=== PATIENT | female | born 1975 | race Caucasian/White ===

== ENCOUNTER → 2017-03-30 | Outpatient (CLI) | payer BC ==
--- NOTE | 2017-03-30 12:31 | REP ---
Clinical: Nephrolithiasis. History of medullary sponge kidney. Technique: Real time torres scale ultrasound examination using curved array transducer. Findings: The kidneys are normal in reniform shape and size diffusely increased medullary echo texture consistent with medullary sponge kidney. There is no evidence for hydronephrosis, cystic or mass lesion. Small nonobstructing intrarenal calculi cannot be excluded. Right kidney measures 10.9 x 5.5 x 4.9 cm. Left kidney measures 9.5 x 5.2 x 5.5 cm. The bladder is unremarkable. 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 Small intrarenal calculi cannot be excluded. Signed by Remberto Barbour MD 03/30/2017 12:22 P
== END ==
LOC: M RAD 11:53
PROVIDERS: ATTEND Internal Medicine Nephrology
DX: N20.0 Calculus of kidney (principal); Q61.5 Medullary cystic kidney; R10.9 Unspecified abdominal pain; N29 Other disorders of kidney and ureter in diseases classified elsewhere

== ENCOUNTER → 2018-11-30 | Outpatient (REF) | payer BC ==
[2018-12-01 11:04] LABS: AMORPHOUS SEDIMENT SMALL (NEGATIVE); BACTERIA, URINE AUTO NEGATIVE (NEGATIVE); RBC, URINE AUTO 1 /HPF (0-3); SQUAMOUS EPITHELIAL CELL UR AU 1 /HPF (0-6); WBC, URINE AUTO 6 /HPF (0-3)
== END ==
LOC: M LAB REF 10:34
PROVIDERS: ATTEND Internal Medicine Nephrology
DX: N20.0 Calculus of kidney (principal)

== ENCOUNTER → 2019-08-13 | Outpatient (CLI) | payer BC ==
--- NOTE | 2019-08-13 20:11 | REP ---
Renal ultrasound: Comparisons are 03/30/2017, at 09/01/2016 and 12/11/2014. The patient has a suspected diagnosis of medullary sponge kidney. The right kidney measures 11.1 x 501 x 5.7 cm. The left kidney measures 9.3 x 4.4 x 5.4 cm. The right kidney is normal size. Left kidney is in the low normal size range. The medullary pyramids of the kidneys are echogenic bilaterally. This is consistent with, but not diagnostic of, medullary sponge kidney. There are tiny echogenic foci at the cortical medullary junction compatible with tiny calculi. There is no hydronephrosis. There is a 1.1 a centimeter right renal cyst at the mid pole. No left renal cysts are identified. No solid masses are identified. Bladder: No bladder jets are identified with color Doppler assessment. However, there is no hydronephrosis. This may be from dehydration. Impression: The there are echogenic medullary renal pyramids bilaterally. There are tiny echogenic foci at the cortical medullary junction bilaterally. These findings are compatible with but not diagnostic of medullary sponge kidney. There is no hydronephrosis. No solid renal masses. There is a right renal simple cyst as discussed. Electronically Signed by Cristóbal Cuellar MD 08/13/2019 08:02 P
== END ==
LOC: M RAD 16:19
PROVIDERS: ATTEND Internal Medicine Nephrology
DX: Q61.5 Medullary cystic kidney (principal)

== ENCOUNTER → 2021-01-04 | Outpatient (CLI) | payer BC, OTHER ==
--- NOTE | 2021-01-04 17:55 | REP ---
INDICATION: CONTUSION OF RIGHT BACK WALL OF THORAX, INITIAL ENCOUNTER. COMPARISON: None. TECHNIQUE: PA chest with 4 dedicated rib views. FINDINGS: PA chest: Lungs are adequately inflated. There is no infiltrate, effusion, atelectasis or mass. CP angle sharply defined. No pneumothorax or pneumomediastinum. Heart, mediastinal and hilar contours are normal. The aorta and airway intact. Visualized clavicles, scapula and ribs on the PA chest intact. No free air under the diaphragm. Right ribs: Four view show posterior rib articulations intact and some marginal osteophytes in the thoracic spine. There is a gentle S shaped curvature of the thoracolumbar spine convex to the right in the midthoracic convex to the left lower thoracic and convex to the right mid lumbar region. Minimal rotatory component the lumbar spine. Posterior ribs are intact in particular the right chest shows no visible or displaced rib fracture or focal lesion the lateral and anterior ribs also intact those portions of left ribs seen were unremarkable. No pleural thickening effusion or pneumothorax. IMPRESSION: Negative PA chest and right rib series for any acute bony abnormality. There is some S-shaped curvature to the thoracolumbar spine with some rotatory component the lumbar spine but no compression fracture. No visible rib fractures. Lung guzman, heart, mediastinal contours, aorta and airway all intact. <Electronically signed by Mahesh Ayala > 01/04/21 [id number]
== END ==
LOC: M RAD 16:46
PROVIDERS: ATTEND Physician Assistant
DX: S20.221A Contusion of right back wall of thorax, initial encounter (principal); X58.XXXA Exposure to other specified factors, initial encounter; Y92.9 Unspecified place or not applicable; Y93.9 Activity, unspecified; Y99.9 Unspecified external cause status

== ENCOUNTER → 2021-05-27 | Outpatient (REF) | payer BC, OTHER | LOC: M LAB REF 17:09 | PROVIDERS: ATTEND Internal Medicine Nephrology | DX: Q61.5 Medullary cystic kidney (principal) ==

== ENCOUNTER → 2021-12-07 | Outpatient (REF) | payer OTHER ==
[2021-12-08 11:32] LABS: BASO # 0.1 10^3/uL (0.0-0.2); BASO % 0.8 % (0.0-1.0); EOS # 0.3 10^3/uL (0.0-0.5); HEMATOCRIT 44.6 % (36.0-47.0); HEMOGLOBIN 15.1 g/dl (12.0-15.5); LYMPH # 2.5 10^3/uL (1.5-5.0); LYMPH % 30.4 % (24.0-44.0); MEAN CORPUSCULAR HEMOGLOBIN 30.9 pg (27.0-33.0); MEAN CORPUSCULAR HGB CONC 33.9 g/dl (32.0-36.5); MEAN CORPUSCULAR VOLUME 91.4 fl (80.0-96.0); MONO # 1.2 10^3/uL (0.0-0.8); MONO % 13.9 % (2.0-8.0); NEUTROPHILS # 4.2 10^3/uL (1.5-8.5); NEUTROPHILS % 50.7 % (36.0-66.0); PLATELET COUNT, AUTOMATED 324 10^3/uL (150-450); RED BLOOD COUNT 4.88 10^6/uL (4.00-5.40); WHITE BLOOD COUNT 8.4 10^3/uL (4.0-10.0)
[2021-12-08 11:47] LABS: HEMOGLOBIN A1c 5.2 %
[2021-12-08 12:16] LABS: ALBUMIN 3.9 GM/DL (3.2-5.2); ALT/SGPT 56 U/L (12-78); BILIRUBIN,TOTAL 0.4 MG/DL (0.2-1.0); BLOOD UREA NITROGEN 13 MG/DL (7-18); CALCIUM LEVEL 9.4 MG/DL (8.5-10.1); CARBON DIOXIDE LEVEL 29 MEQ/L (21-32); CHLORIDE LEVEL 105 MEQ/L (98-107); CREATININE FOR GFR 0.59 MG/DL (0.55-1.30); FREE T4 1.05 NG/DL (0.76-1.46); GLOMERULAR FILTRATION RATE > 60.0 (>58); GLUCOSE, FASTING 58 MG/DL (70-100); POTASSIUM SERUM 4.5 MEQ/L (3.5-5.1); SODIUM LEVEL 140 MEQ/L (136-145); THYROID STIMULATING HORMONE 0.465 uIU/ML (0.358-3.740); TOTAL PROTEIN 7.5 GM/DL (6.4-8.2)
== END ==
LOC: M SFHCCLAY 14:51
PROVIDERS: ATTEND Nurse Practitioner Family
DX: R73.01 Impaired fasting glucose (principal); K21.9 Gastro-esophageal reflux disease without esophagitis; Q61.5 Medullary cystic kidney; M79.7 Fibromyalgia

== ENCOUNTER → 2022-12-02 | Outpatient (REF) | payer OTHER ==
[2022-12-02 12:36] LABS: BASO % 0.3 % (0.0-1.0); EOS # 0.2 10^3/uL (0.0-0.5); EOS % 2.4 % (0.0-3.0); HEMATOCRIT 43.3 % (36.0-47.0); HEMOGLOBIN 14.4 g/dl (12.0-15.5); LYMPH % 28.8 % (24.0-44.0); MEAN CORPUSCULAR HGB CONC 33.3 g/dl (32.0-36.5); MEAN CORPUSCULAR VOLUME 93.3 fl (80.0-96.0); MONO # 0.6 10^3/uL (0.0-0.8); MONO % 9.3 % (2.0-8.0); NEUTROPHILS % 58.8 % (36.0-66.0); PLATELET COUNT, AUTOMATED 311 10^3/uL (150-450); RED BLOOD COUNT 4.64 10^6/uL (4.00-5.40); WHITE BLOOD COUNT 6.8 10^3/uL (4.0-10.0)
[2022-12-02 13:06] LABS: ALBUMIN 3.6 G/DL (3.2-5.2); ALKALINE PHOSPHATASE 31 U/L (46-116); ALT/SGPT 37 U/L (7.0-40); AST/SGOT 27 U/L (<34); BILIRUBIN,TOTAL 0.5 MG/DL (0.3-1.2); BLOOD UREA NITROGEN 15 MG/DL (9-23); CARBON DIOXIDE LEVEL 31 MMOL/L (20-31); CHLORIDE LEVEL 102 MMOL/L (98-107); CHOLESTEROL LEVEL 248 MG/DL (<200); CHOLESTEROL RISK RATIO 5.51 (<5); CREATININE FOR GFR 0.64 MG/DL (0.55-1.30); FREE T4 1.16 NG/DL (0.89-1.76); GLOMERULAR FILTRATION RATE > 60.0 (>58); GLUCOSE, FASTING 88 MG/DL (60-100); LDL CHOLESTEROL 153.6 MG/DL (<100); NON-HDL-C 203 MG/DL; POTASSIUM SERUM 3.9 MMOL/L (3.5-5.1); SODIUM LEVEL 140 MMOL/L (136-145); THYROID STIMULATING HORMONE 0.613 uIU/ML (0.55-4.78); TRIGLYCERIDES LEVEL 247 MG/DL (<150)
== END ==
LOC: M SFHCCLAY 09:04
PROVIDERS: ATTEND Nurse Practitioner Family
DX: R73.01 Impaired fasting glucose (principal); K21.9 Gastro-esophageal reflux disease without esophagitis; Q61.5 Medullary cystic kidney; M79.7 Fibromyalgia; S86.019D Strain of unspecified Achilles tendon, subsequent encounter

== ENCOUNTER → 2023-01-03 | Outpatient (CLI) | payer BC, OTHER | LOC: M WHC 12:32 | PROVIDERS: ATTEND Nurse Practitioner Family | DX: Z12.31 Encounter for screening mammogram for malignant neoplasm of breast (principal) ==

== ENCOUNTER → 2023-01-13 | Outpatient (REF) | payer OTHER | LOC: M SFHCCLAY 09:51 | PROVIDERS: ATTEND Nurse Practitioner Family | DX: Z01.419 Encounter for gynecological examination (general) (routine) without abnormal findings (principal) ==

== ENCOUNTER → 2024-01-25 | Outpatient (REF) | payer OTHER | LOC: M SFHCCLAY 09:45 | PROVIDERS: ATTEND Nurse Practitioner Family | DX: Z12.4 Encounter for screening for malignant neoplasm of cervix (principal) | CPT/HCPCS: 87624; G0123 ==

== ENCOUNTER → 2024-03-09 | Outpatient (CLI) | payer BC | LOC: M WHC 10:00 | PROVIDERS: ATTEND Nurse Practitioner Family | DX: Z12.31 Encounter for screening mammogram for malignant neoplasm of breast (principal) ==

== ENCOUNTER → 2024-04-02 | Outpatient (CLI) | payer BC | LOC: M WHC 13:13 | PROVIDERS: ATTEND Nurse Practitioner Family | DX: Z12.31 Encounter for screening mammogram for malignant neoplasm of breast (principal) ==

== ENCOUNTER → 2025-01-28 | Outpatient (REF) | payer BC ==
[2025-01-28 16:49] LABS: BASO % 0.3 % (0.0-1.0); EOS # 0.4 10^3/uL (0.0-0.5); EOS % 4.1 % (0.0-3.0); HEMATOCRIT 44.2 % (36.0-47.0); HEMOGLOBIN 15.5 g/dl (12.0-15.5); LYMPH # 2.6 10^3/uL (1.5-5.0); MEAN CORPUSCULAR HEMOGLOBIN 31.6 pg (27.0-33.0); MEAN CORPUSCULAR HGB CONC 35.1 g/dl (32.0-36.5); MONO # 0.9 10^3/uL (0.0-0.8); MONO % 10.1 % (2.0-8.0); NEUTROPHILS % 56.3 % (36.0-66.0); PLATELET COUNT, AUTOMATED 314 10^3/uL (150-450); RED BLOOD COUNT 4.91 10^6/uL (4.00-5.40); WHITE BLOOD COUNT 8.9 10^3/uL (4.0-10.0)
[2025-01-28 16:55] LABS: ALBUMIN 3.7 G/DL (3.2-5.2); ALKALINE PHOSPHATASE 45 U/L (35-104); ALT/SGPT 38 U/L (7.0-40); AST/SGOT 23 U/L (<34); BILIRUBIN,TOTAL 0.6 MG/DL (0.3-1.2); BLOOD UREA NITROGEN 12 MG/DL (9-23); CALCIUM LEVEL 9.5 MG/DL (8.5-10.1); CARBON DIOXIDE LEVEL 30 MMOL/L (20-31); CHLORIDE LEVEL 103 MMOL/L (98-107); CHOLESTEROL LEVEL 252 MG/DL (<200); CHOLESTEROL RISK RATIO 5.95 (<5); CREATININE FOR GFR 0.64 MG/DL (0.55-1.30); GLOMERULAR FILTRATION RATE > 60.0 (>58); GLUCOSE, FASTING 88 MG/DL (60-100); HDL CHOLESTEROL 42.3 MG/DL (>40); LDL CHOLESTEROL 149.5 MG/DL (<100); NON-HDL-C 209.7 MG/DL; POTASSIUM SERUM 3.9 MMOL/L (3.5-5.1); SODIUM LEVEL 141 MMOL/L (136-145); TOTAL PROTEIN 7.1 G/DL (5.7-8.2); TRIGLYCERIDES LEVEL 301 MG/DL (<150)
[2025-01-28 16:59] LABS: FREE T4 1.13 NG/DL (0.89-1.76); THYROID STIMULATING HORMONE 0.919 uIU/ML (0.55-4.78)
[2025-01-28 17:05] LABS: HEMOGLOBIN A1c 5.1 % (4.0-6.0)
== END ==
LOC: M SFHCCLAY 10:24
PROVIDERS: ATTEND Nurse Practitioner Family
DX: M79.7 Fibromyalgia (principal); E78.2 Mixed hyperlipidemia; R73.01 Impaired fasting glucose; Q61.5 Medullary cystic kidney; K21.9 Gastro-esophageal reflux disease without esophagitis

== ENCOUNTER → 2025-10-14 | Outpatient (CLI) | payer BC | LOC: M PLAIMG 11:28 | PROVIDERS: ATTEND Student in an Organized Health Care Education/Training Program | DX: N20.0 Calculus of kidney (principal) ==

== ENCOUNTER → 2025-11-04 | Outpatient (CLI) | payer BC | LOC: M WHC 08:46 | PROVIDERS: ATTEND Nurse Practitioner Family | DX: N83.202 Unspecified ovarian cyst, left side (principal) ==